=== PATIENT | female | born 1945 | race Caucasian/White ===

== ENCOUNTER → 2017-06-19 17:29 | Outpatient (CLI) | payer MEDICARE, OTHER ==
[2015-06-15 15:09] VITALS: BMI 26.5
[~2017-06-19 17:29] MED LIST: AMBIEN5 MG PO; ATIVAN0.5 MG PO; BACLOFEN10 MG PO; CALCI-CHEW1 TAB.CHEW PO; CARAFATE1 G PO; COZAAR50 MG PO; DEXILANT60 MG PO; EC-NAPROSYN375 MG PO; EPIPEN0.3 MG/0.3 IM; FLINTSTONE1 TAB.CHEW PO; FLOVENT HFA 22012 GM INH; FLOVENT HFA 22012 GM OR; HYDROCODONE-APA1 TAB PO; HYZAAR 50-12.51 TAB PO; ISRADIPINE2.5 MG PO; LEVAQUIN500 MG PO; LEVSIN/ANASP0.125 MG PO; LORTAB ELIXIR PO; NEXIUM20 MG PO; NEXIUM40 MG PO; NIASPAN500 MG PO; PERCOCET 10/3251 TA1 PO; PHENERGAN25 MG RC; PRAVACHOL40 MG PO; PREMARIN0.625 MG PO; PROBIOTIC; PROTONIX40 MG PO; PROZAC20 MG PO; ROBAXIN-750750 MG PO; SINGULAIR10 MG PO; SLEEP AID25 M1 PO; STOOL SOFT; SYNTHROID100 MCG PO; VITAMIN D250000 UNIT PO; VITAMIN D5000 UNIT PO; ZOFRAN ODT4 MG/UDTAB PO; ZOFRAN4 MG PO; [UNRECOGNIZED DRUG - OTHER]
== END | disposition home or self-care (01) ==
LOC: D.MAMMO 16:00
DX: Z12.31 Encounter for screening mammogram for malignant neoplasm of breast (principal)

== ENCOUNTER → 2017-09-05 13:15 | Outpatient (CLI) | payer MEDICARE, OTHER ==
[2015-06-15 15:09] VITALS: BMI 26.5
== END | disposition home or self-care (01) ==
LOC: D.CT 13:15
DX: N81.6 Rectocele (principal)

== ENCOUNTER → 2017-10-15 15:13 | Outpatient (CLI) | payer MEDICARE, OTHER ==
[2015-06-15 15:09] VITALS: BMI 26.5
[2017-10-21 15:23] LABS: ANTIPARIETAL CELL ANTIBODY 16.6 Units (0.0-20.0)
== END | disposition home or self-care (01) ==
LOC: D.LAB 15:00
PROVIDERS: Internal Medicine Gastroenterology
DX: K29.40 Chronic atrophic gastritis without bleeding (principal); A18.4 Tuberculosis of skin and subcutaneous tissue

== ENCOUNTER 2018-07-18 17:06 | Outpatient (CLI) | payer MEDICARE ==
[2015-06-15 15:09] VITALS: BMI 26.5
== END 2018-07-18 23:59 | disposition home or self-care (01) ==
LOC: D.MAMMO 17:06
DX: Z12.31 Encounter for screening mammogram for malignant neoplasm of breast (principal)

== ENCOUNTER 2018-08-18 08:00 | Outpatient (CLI) | payer MEDICARE ==
[2015-06-15 15:09] VITALS: BMI 26.5
== END 2018-08-18 09:00 | disposition home or self-care (01) ==
LOC: D.MAMMO 08:00
DX: R92.8 Other abnormal and inconclusive findings on diagnostic imaging of breast (principal)

== ENCOUNTER → 2019-03-31 08:44 | Outpatient (CLI) | payer MEDICARE, OTHER ==
[2015-06-15 15:09] VITALS: BMI 26.5
[~2019-03-31 08:44] MED LIST changes: +NEXIUM40 MG; +NORVASC5 MG PO
== END | disposition home or self-care (01) ==
LOC: D.RAD 08:44
PROVIDERS: ATTEND Internal Medicine Gastroenterology
DX: R13.10 Dysphagia, unspecified (principal); R11.2 Nausea with vomiting, unspecified

== ENCOUNTER 2019-04-20 06:28 | Day surgery (SDC) | payer MEDICARE, OTHER ==
[~2019-04-20] VITALS: Ht 165.1 cm; Wt 60.5 kg
[~2019-04-20 06:28] MED LIST changes: -NEXIUM40 MG; -NORVASC5 MG PO
[2019-04-20 06:43] LABS: HEMATOCRIT 30.3 % (36.0-48.0); HEMOGLOBIN 9.5 g/dL (12-16); MCH 29.8 pg (26.0-34.0); MCHC 31.4 g/dL (31.0-37.0); MEAN PLATELET VOLUME 11.6 fL (7.4-10.4); RBC 3.19 10x6/uL (4.00-5.40); RDW 14.1 % (11.5-14.5); WBC 4.9 10x3/uL (4.8-10.8)
[2019-04-20] MEDS ORDERED: NEXIUM40 MG (07:37)
[2019-04-20] MEDS ORDERED: NORVASC5 MG PO (07:37)
[2019-04-20 08:01] VITALS: BP 146/63; Ht 165.1 cm; Wt 60.5 kg
--- NOTE | 2019-04-20 14:50 | NUR ---
1030 IV DC'D. CATHETER TIP INTACT. NO BLEEDING AT SITE. BANDAID APPLIED.
--- NOTE | 2019-04-20 14:55 | NUR ---
1040 PT HAS RECEIVED DISCHARGE INSTRUCTIONS AND VOICES UNDERSTANDING. PT STATES SHE IS READY TO GO HOME.
== END 2019-04-20 10:45 | disposition home or self-care (01) ==
LOC: D.OPS 06:28
PROVIDERS: Anesthesiology; ATTEND Surgery
DX: R13.10 Dysphagia, unspecified (principal); K44.9 Diaphragmatic hernia without obstruction or gangrene

== ENCOUNTER 2019-07-31 13:13 | Emergency (ER) | payer MEDICARE, OTHER ==
[~2019-07-31] VITALS: Ht 165.1 cm; Wt 55.9 kg
[~2019-07-31 13:13] MED LIST changes: +NEXIUM40 MG; +NORVASC5 MG PO
[2019-07-31 13:26] VITALS: Ht 165.1 cm; Wt 55.9 kg
[2019-07-31 14:35] LABS: BASOPHILS 1.1 % (0-2); EOSINOPHILS 0.8 % (0-7); HEMOGLOBIN 9.9 g/dL (12-16); IMMATURE GRANULOCYTES 0.2 % (0-5); LYMPHOCYTES 21.3 % (15-50); MCHC 30.9 g/dL (31.0-37.0); MCV 93.8 fL (80.0-100.0); MEAN PLATELET VOLUME 11.3 fL (7.4-10.4); MONOCYTES 6.5 % (2-11); NEUTROPHILS 70.1 % (40-80); PLATELET COUNT 232 10x3/uL (130-400); RBC 3.41 10x6/uL (4.00-5.40); RDW 15.5 % (11.5-14.5); WBC 6.3 10x3/uL (4.8-10.8)
[2019-07-31 14:45] LABS: ANION GAP 14.7 mmol/L (8-16); CALCIUM 8.7 mg/dL (8.5-10.1); CARBON DIOXIDE 27.6 mmol/L (21.0-32.0); CREATININE - SERUM 1.1 mg/dL (0.6-1.3); POTASSIUM - SERUM 4.3 mmol/L (3.5-5.1)
[2019-07-31 14:52] LABS: ALBUMIN 3.4 g/dL (3.4-5.0); BILIRUBIN - TOTAL 0.19 mg/dL (0.2-1.3)
[2019-07-31 14:54] LABS: APTT 30.7 SECONDS (22.8-39.4); INR 0.91 (0.85-1.17); PROTIME 12.2 SECONDS (11.6-15.0)
[2019-07-31] MEDS ORDERED: HYDROCODON-ACE1 EAC7 PO (16:38)
[2019-07-31 16:47] VITALS: BP 140/76
== END 2019-07-31 16:51 | disposition home or self-care (01) ==
LOC: D.ER 13:13
PROVIDERS: Family Medicine
DX: M75.101 Unspecified rotator cuff tear or rupture of right shoulder, not specified as traumatic (principal); S46.211A Strain of muscle, fascia and tendon of other parts of biceps, right arm, initial encounter; E07.9 Disorder of thyroid, unspecified; I73.00 Raynaud's syndrome without gangrene; I10 Essential (primary) hypertension; X50.0XXA Overexertion from strenuous movement or load, initial encounter; Y93.9 Activity, unspecified; Y92.9 Unspecified place or not applicable

== ENCOUNTER 2020-09-06 09:45 | Outpatient (CLI) | payer MEDICARE, OTHER ==
[2019-07-31 13:26] VITALS: BMI 20.5
[~2020-09-06 09:45] MED LIST changes: +HYDROCODON-ACE1 EAC7 PO
== END 2020-09-06 23:59 | disposition home or self-care (01) ==
LOC: D.MAMMO 09:45
PROVIDERS: ATTEND Family Medicine
DX: Z12.31 Encounter for screening mammogram for malignant neoplasm of breast (principal)